=== PATIENT | female | born 1955 | race Caucasian/White ===

== ENCOUNTER → 2017-05-07 | Outpatient (CLI) | payer BC ==
[~2017-05-07] MED LIST: GLUCOSAMINE/CHONDROI PO; TYLENOL 500MG500 MG PO; [UNRECOGNIZED DRUG - OTHER]
== END ==
LOC: MC.RAD 10:37
DX: Z12.31 Encounter for screening mammogram for malignant neoplasm of breast (principal)

== ENCOUNTER → 2018-08-04 | Outpatient (CLI) | payer BC | LOC: MC.RAD 16:16 | DX: Z12.31 Encounter for screening mammogram for malignant neoplasm of breast (principal) ==

== ENCOUNTER → 2019-08-18 | Outpatient (CLI) | payer BC | LOC: MC.RAD 13:39 | DX: Z12.31 Encounter for screening mammogram for malignant neoplasm of breast (principal) ==

== ENCOUNTER → 2020-08-19 | Outpatient (CLI) | payer BC | LOC: MC.RAD 13:45 | DX: Z12.31 Encounter for screening mammogram for malignant neoplasm of breast (principal) ==

== ENCOUNTER → 2021-05-14 | Outpatient (CLI) | payer BC | LOC: DIA.ED 13:29 | DX: R73.03 Prediabetes (principal); Z79.84 Long term (current) use of oral hypoglycemic drugs; E78.5 Hyperlipidemia, unspecified; I10 Essential (primary) hypertension | CPT/HCPCS: G0108 ==

== ENCOUNTER → 2021-06-25 | Outpatient (CLI) | payer BC | LOC: DIA.ED 08:30 | DX: R73.03 Prediabetes (principal); Z79.84 Long term (current) use of oral hypoglycemic drugs; E78.5 Hyperlipidemia, unspecified; I10 Essential (primary) hypertension | CPT/HCPCS: G0108 ==

== ENCOUNTER → 2022-10-12 | Outpatient (CLI) | payer BC, MEDICARE | LOC: MC.RAD 13:44 | DX: N60.01 Solitary cyst of right breast (principal) ==